=== PATIENT | male | born 1980 | race Caucasian/White ===

== ENCOUNTER → 2018-05-29 | Outpatient (CLI) | payer MEDICARE, OTHER ==
--- NOTE | 2018-06-04 07:27 | SLEEP ---
DATE OF PROCEDURE: 05/29/2018 REFERRING PHYSICIAN: Gina Howard INTERPRETATION: Overnight polysomnography was performed for evaluation of excessive daytime sleepiness. The patient was scheduled for multiple sleep latency test which was cancelled due to findings on this overnight diagnostic sleep study. A total 8 hours and 37 minutes of data was reviewed with total sleep time 339.5 minutes with prolonged sleep onset latency and reduced sleep efficiency. Moderate snoring was observed throughout the study. The mean oxygen saturation was 95% during this study with minimum oxygen saturation 87% during respiratory events. EKG revealed sinus rhythm with periodic speeding and slowing of heart rate surrounding respiratory events. EEG remained normal throughout. Respiratory disturbance index was 14.3 per hour with 12.9 per hour, respiratory effort related arousals. There were no significant periodic limb movements of sleep during this study. CONCLUSION: 1. Obstructive sleep apnea syndrome. 2. Reduced sleep efficiency and excessive fragmentation. RECOMMENDATIONS: Overnight polysomnography for titration of positive airway pressure is recommended. In the meantime the patient is to exercise caution while operating heavy machinery and motor vehicles. If excessive daytime sleepiness remains a clinical concern, repeat polysomnography of capital CPAP followed by multiple sleep latency test should be considered. Clinical correlation is recommended.
== END ==
LOC: M SLEEP 19:18
PROVIDERS: ATTEND Psychiatry & Neurology Neurology
DX: G47.33 Obstructive sleep apnea (adult) (pediatric) (principal); G47.411 Narcolepsy with cataplexy; Z87.820 Personal history of traumatic brain injury; F17.210 Nicotine dependence, cigarettes, uncomplicated

== ENCOUNTER 2021-09-25 05:16 | Emergency (ER) | payer MEDICARE, OTHER ==
[~2021-09-25] VITALS: Ht 175.3 cm; Wt 85.5 kg
[2021-09-25] MEDS ORDERED: NALOXONE 2MG/2ML SYRINGE (J2310 PER 1MG) IV STA (05:26)
[2021-09-25 06:01] LABS: ABG BASE EXCESS -2.2 (-2.0-2.0); ABG HCO3 22.3 MEQ/L (22.0-26.0); ABG STANDARD HCO3 22.6 MEQ/L (22.0-26.0); ABG TOTAL CO2 23.5 MEQ/L (22.0-29.0); ABG pH (ARTERIAL) 7.387 UNITS (7.350-7.450)
[2021-09-25 06:04] LABS: BASO # 0.1 10^3/uL (0.0-0.2); BASO % 0.5 % (0.0-1.0); EOS # 0.1 10^3/uL (0.0-0.5); EOS % 1.2 % (0.0-3.0); HEMOGLOBIN 14.5 g/dl (13.5-17.5); LYMPH # 1.9 10^3/uL (1.5-5.0); LYMPH % 17.7 % (24.0-44.0); MEAN CORPUSCULAR HEMOGLOBIN 32.8 pg (27.0-33.0); MEAN CORPUSCULAR HGB CONC 34.5 g/dl (32.0-36.5); MONO # 1.2 10^3/uL (0.0-0.8); MONO % 10.8 % (2.0-8.0); NEUTROPHILS # 7.4 10^3/uL (1.5-8.5); NEUTROPHILS % 69.4 % (36.0-66.0); PLATELET COUNT, AUTOMATED 376 10^3/uL (150-450); RED BLOOD COUNT 4.42 10^6/uL (4.30-6.10); WHITE BLOOD COUNT 10.7 10^3/uL (4.0-10.0)
[2021-09-25 06:17] LABS: ACETAMINOPHEN LEVEL < 2.0 UG/ML (10.0-30.0); ALBUMIN 3.9 GM/DL (3.2-5.2); ALT/SGPT 28 U/L (12-78); BILIRUBIN,DIRECT < 0.1 MG/DL (0.0-0.2); BILIRUBIN,TOTAL 0.2 MG/DL (0.2-1.0); BLOOD UREA NITROGEN 20 MG/DL (7-18); CALCIUM LEVEL 10.2 MG/DL (8.5-10.1); CARBON DIOXIDE LEVEL 25 MEQ/L (21-32); CHLORIDE LEVEL 110 MEQ/L (98-107); CREATININE FOR GFR 0.99 MG/DL (0.70-1.30); ETHYL ALCOHOL (ETHANOL) < 0.003 % (0.000-0.010); GLOMERULAR FILTRATION RATE > 60.0 (>60); GLUCOSE, FASTING 138 MG/DL (70-100); POTASSIUM SERUM 4.5 MEQ/L (3.5-5.1); SALICYLATE LEVEL 4.9 MG/DL (5.0-30.0); SODIUM LEVEL 143 MEQ/L (136-145); TOTAL PROTEIN 7.5 GM/DL (6.4-8.2)
[2021-09-25] MEDS ORDERED: NS 1,000 ML IV SCH (06:20)
[2021-09-25 06:36] LABS: AMPHETAMINES LEVEL URINE NEGATIVE (NEGATIVE); BARBITURATES URINE NEGATIVE (NEGATIVE); BENZODIAZEPINES URINE NEGATIVE (NEGATIVE); CANNABINOIDS URINE NEGATIVE (NEGATIVE); COCAINE METABOLITE URINE NEGATIVE (NEGATIVE); METHADONE URINE NEGATIVE (NEGATIVE); OPIATES URINE NEGATIVE (NEGATIVE); PHENCYCLIDINE URINE NEGATIVE (NEGATIVE)
[2021-09-25 07:16] LABS: RSV AMPLIFICATION NEGATIVE (NEGATIVE)
[2021-09-25 11:29] VITALS: BP 141/83
== END 2021-09-25 11:34 | disposition home or self-care (01) ==
LOC: M ED 05:16
DX: G47.419 Narcolepsy without cataplexy (principal); R41.82 Altered mental status, unspecified; T50.905A Adverse effect of unspecified drugs, medicaments and biological substances, initial encounter; I45.10 Unspecified right bundle-branch block; Z79.899 Other long term (current) drug therapy; Z88.0 Allergy status to penicillin; Z88.6 Allergy status to analgesic agent
CPT/HCPCS: 36600; 51701; 70450; 80048; 80076; 80143; 80307; 82077; 82140; 82803; 84443; 85025; 87631; 93005; 93041; 94760; 96374; 99285; J2310